=== PATIENT | female | born 1960 | race Caucasian/White ===

== ENCOUNTER 2018-04-08 10:32 | Observation (INO) | payer MEDICAID ==
[2018-04-08 15:14] LABS: ADD MAN DIFF? NO
[2018-04-08 15:15] LABS: WHITE BLOOD COUNT 7.2 10^3/ul (4.8-10.8)
[2018-04-08 15:15] LABS: BASOPHILS % 0.3 % (0.0-2.0); EOSINOPHILS % 0.3 % (0.0-7.0); HEMATOCRIT 44.7 % (37.0-47.0); HEMOGLOBIN 15.4 g/dl (12.0-16.0); MEAN CORPUSCULAR HEMOGLOBIN 33.6 pg (29.0-33.0); MEAN CORPUSCULAR HGB CONC 34.5 g/dl (32.0-37.0); MEAN CORPUSCULAR VOLUME 97.4 fl (82.0-101.0); MEAN PLATELET VOLUME 9.5 fl (7.4-10.4); MONOCYTE # 0.5 10^3/ul (0.3-0.9); MONOCYTES % 6.5 % (0.0-11.0); NEUTROPHIL # 4.7 10^3/ul (1.6-7.5); NEUTROPHILS % 64.8 % (39.0-77.0); PLATELET COUNT 246 10^3/UL (140-415); RED BLOOD COUNT 4.59 10^6/ul (4.20-5.40)
[2018-04-08 15:31] LABS: ANION GAP 12 (8-16); BLOOD UREA NITROGEN 15 mg/dl (7-20); CALCIUM 9.9 mg/dl (8.4-10.2); CARBON DIOXIDE 30 mmol/L (21-31); CHLORIDE 101 mmol/L (97-110); CREATININE 0.54 mg/dl (0.44-1.00); GLUCOSE 105 mg/dl (70-220); POTASSIUM 4.1 mmol/L (3.5-5.1); SODIUM 139 mmol/L (135-144)
[2018-04-08 15:43] LABS: TROPONIN-I < 0.012 ng/ml (0.000-0.120)
[2018-04-08] MEDS: ASPIRIN 81 MG TAB PO (16:57)
[2018-04-08] MEDS ORDERED: ONDANSETRON 4 MG INJ IV ×2 (17:00)
[2018-04-08] MEDS ORDERED: ACETAMINOPHEN 325 MG TAB PO ×2 (17:00)
[2018-04-08] MEDS ORDERED: NACL 0.9% 3 ML SYG IV (17:00)
[2018-04-08] MEDS ORDERED: hydrALAzine 20 MG INJ IV (18:30)
[2018-04-08 18:43] LABS: HEMOGLOBIN A1C 5.2 % (0-5.9)
[2018-04-08] MEDS: NITROGLYCERIN (SL) 0.4 MG TAB SL (20:55)
[2018-04-08] MEDS: FAMOTIDINE 20 MG TAB PO (20:55)
[2018-04-08] MEDS: SOD CHLORIDE 0.9% 1,000 ML IV (20:57)
[2018-04-08 22:49] LABS: CREATINE KINASE 77 IU/L (23-200)
[2018-04-08 23:01] LABS: CK INDEX 0.9; CK-MB 0.73 ng/ml (0.0-2.4); TROPONIN-I < 0.010 ng/ml (0.000-0.120)
[2018-04-09 03:18] LABS: ADD MAN DIFF? NO
[2018-04-09 03:28] LABS: WHITE BLOOD COUNT 6.5 10^3/ul (4.8-10.8)
[2018-04-09 03:28] LABS: BASOPHILS % 0.6 % (0.0-2.0); EOSINOPHILS # 0.1 10^3/ul (0.0-0.5); EOSINOPHILS % 1.4 % (0.0-7.0); HEMATOCRIT 40.9 % (37.0-47.0); HEMOGLOBIN 13.7 g/dl (12.0-16.0); LYMPHOCYTES # 1.9 10^3/ul (0.8-2.9); LYMPHOCYTES % 28.5 % (15.0-51.0); MEAN CORPUSCULAR HEMOGLOBIN 32.9 pg (29.0-33.0); MEAN CORPUSCULAR HGB CONC 33.5 g/dl (32.0-37.0); MEAN CORPUSCULAR VOLUME 98.3 fl (82.0-101.0); MEAN PLATELET VOLUME 9.5 fl (7.4-10.4); MONOCYTE # 0.5 10^3/ul (0.3-0.9); MONOCYTES % 7.8 % (0.0-11.0); NEUTROPHILS % 61.5 % (39.0-77.0); PLATELET COUNT 212 10^3/UL (140-415); RED BLOOD COUNT 4.16 10^6/ul (4.20-5.40); RED CELL DISTRIBUTION WIDTH 12.2 % (11.5-14.5)
[2018-04-09 03:47] LABS: CREATINE KINASE 65 IU/L (23-200); HDL CHOLESTEROL 54 mg/dl (37-92); LDL CHOLESTEROL,CALCULATED 93 mg/dl; TRIGLYCERIDES 83 mg/dl (0-149)
[2018-04-09 03:47] LABS: CHOLESTEROL 164 mg/dl (100-200)
[2018-04-09 03:54] LABS: ALBUMIN 3.8 g/dl (3.3-4.9); ANION GAP 12 (8-16); BLOOD UREA NITROGEN 23 mg/dl (7-20); CALCIUM 8.9 mg/dl (8.4-10.2); CARBON DIOXIDE 28 mmol/L (21-31); CHLORIDE 105 mmol/L (97-110); GLUCOSE 100 mg/dl (70-220); PHOSPHORUS 4.7 mg/dl (2.5-4.9); POTASSIUM 4.5 mmol/L (3.5-5.1); SODIUM 140 mmol/L (135-144)
[2018-04-09 03:59] LABS: CK-MB 0.67 ng/ml (0.0-2.4); TROPONIN-I < 0.010 ng/ml (0.000-0.120)
[2018-04-09] MEDS: ISOSORBIDE DINITRATE 10 MG TAB PO ×2 (09:00→13:38)
[2018-04-09] MEDS: REGADENOSON 0.4 MG/5 ML SYG (11:55)
[2018-04-09] MEDS: ASPIRIN 81 MG TAB PO (13:36)
== END 2018-04-09 16:19 | disposition home health service (06) ==
LOC: E/R 10:32 → 6WM 16:55
DX: R07.9 Chest pain, unspecified (principal); I10 Essential (primary) hypertension; R00.1 Bradycardia, unspecified; R94.31 Abnormal electrocardiogram [ECG] [EKG]
CPT/HCPCS: 36415; 71045; 78452; 80048; 80061; 80069; 82550; 82553; 83036; 83735; 84443; 84484; 85025; 93005; 93017; 93306; 99285-25; G0378

== ENCOUNTER 2018-08-30 22:33 | Emergency (ER) | payer MEDICAID | END 2018-08-31 01:59 | disposition home or self-care (01) | LOC: FTE 22:33 | DX: J06.9 Acute upper respiratory infection, unspecified (principal); Z79.82 Long term (current) use of aspirin | CPT/HCPCS: 99282; Z7502 ==